=== PATIENT | male | born 1975 | race Caucasian/White ===

== ENCOUNTER 2017-07-12 10:43 | Emergency (ER) | payer OTHER ==
[~2017-07-12] VITALS: Ht 170.2 cm; Wt 81.8 kg
[2017-07-12 10:54] VITALS: RESP 15; TEMP 98.4; Ht 170.2 cm; Wt 81.8 kg
[2017-07-12] MEDS ORDERED: KETOROLAC 15 MG INJ IV STA ×2 (10:56→14:13)
[2017-07-12] MEDS ORDERED: SOD CHLORIDE 0.9% 1,000 ML IV STA (10:56)
[2017-07-12] MEDS ORDERED: ONDANSETRON 4 MG INJ IV STA (10:56)
[2017-07-12 11:23] LABS: BASOPHIL # 0.1 10^3/ul (0.0-0.1); EOSINOPHILS # 0.1 10^3/ul (0.0-0.5); EOSINOPHILS % 2.7 % (0.0-7.0); HEMATOCRIT 43.8 % (42.0-52.0); HEMOGLOBIN 15.3 g/dl (14.0-18.0); LYMPHOCYTES # 2.3 10^3/ul (0.8-2.9); LYMPHOCYTES % 45.3 % (15.0-51.0); MEAN CORPUSCULAR HEMOGLOBIN 29.2 pg (29.0-33.0); MEAN CORPUSCULAR HGB CONC 34.9 g/dl (32.0-37.0); MEAN CORPUSCULAR VOLUME 83.6 fl (82.0-101.0); MEAN PLATELET VOLUME 11.3 fl (7.4-10.4); MONOCYTE # 0.4 10^3/ul (0.3-0.9); MONOCYTES % 8.4 % (0.0-11.0); NEUTROPHIL # 2.2 10^3/ul (1.6-7.5); PLATELET COUNT 215 10^3/UL (140-415); RED BLOOD COUNT 5.24 10^6/ul (4.70-6.10); RED CELL DISTRIBUTION WIDTH 12.2 % (11.5-14.5); WHITE BLOOD COUNT 5.1 10^3/ul (4.8-10.8)
[2017-07-12 11:40] LABS: ALBUMIN 4.2 g/dl (3.3-4.9); ALBUMIN/GLOBULIN RATIO 1.61; BILIRUBIN,INDIRECT 0.4 mg/dl (0-1.1); BILIRUBIN,TOTAL 0.4 mg/dl (0.2-1.3); CALCIUM 9.2 mg/dl (8.4-10.2); CREATININE 1.11 mg/dl (0.61-1.24); POTASSIUM 3.7 mmol/L (3.5-5.1); TOTAL PROTEIN 6.8 g/dl (6.1-8.1)
[2017-07-12 12:13] LABS: ADD UMIC YES; UR ASCORBIC ACID NEGATIVE (NEGATIVE); UR BILIRUBIN (Dip) NEGATIVE (NEGATIVE); UR BLOOD (Dip) 3+ mg/dL (NEGATIVE); UR CLARITY SLIGHTLY CLOUDY (CLEAR); UR COLOR YELLOW (YELLOW); UR GLUCOSE (Dip) NEGATIVE (NEGATIVE); UR KETONES (Dip) NEGATIVE (NEGATIVE); UR LEUKOCYTE ESTERASE (Dip) NEGATIVE Leu/ul (NEGATIVE); UR MUCUS FEW /HPF (NONE SEEN); UR NITRITE (Dip) NEGATIVE (NEGATIVE); UR RBC > 182 /HPF (0-5); UR SPECIFIC GRAVITY (Dip) 1.011 (1.003-1.030); UR TOTAL PROTEIN (Dip) 1+ mg/dl (NEGATIVE); UR UROBILINOGEN (Dip) NEGATIVE (NEGATIVE)
--- NOTE | 2017-07-12 14:02 | RADRPT ---
PROCEDURE: CT Abdomen and Pelvis without contrast. CLINICAL INDICATION: Nephrolithiasis. TECHNIQUE: CT scan of the abdomen and pelvis without contrast was performed on a multidetector CT scanner. The patient was scanned without intravenous contrast. Coronal and sagittal reformatted karla ges were obtained from the axial source images. Images were reviewed on a high-resolution PACS works tation. DICOM images are available. One or more of the following dose reduction techniques were used: -Automated exposure control. -Adjustment of the mA and/or kV according to patient size. -Use of iterative reconstruction technique. The total exam CTDI equals 10.58 mGy and the total exam DLP equals 606.34 mGy-cm. COMPARISON: None. FINDINGS: Please note that the sensitivity for detection of focal lesions or vascular disease is markedly redu ortiz without intravenous contrast. The visualized lung bases are clear. CT abdomen: Liver: Unremarkable. Biliary system: No intra or extrahepatic biliary ductal dilatation. Gallbladder: Unremarkable. Pancreas: Unremarkable. Spleen: Unremarkable. Adrenal glands: Unremarkable. Right kidney: There are a few punctate nonobstructing right renal stones. No obstructing ureteric st one is identified. There is mild prominence of the right renal collecting system. Left kidney: There is a 3 mm obstructing stone in the proximal left ureter with resultant mild proxi mal hydroureter/hydronephrosis. Bowel loops: Unremarkable. There is no bowel obstruction. Appendix normal. Lymph Nodes: There is no mesenteric lymphadenopathy. There is no retroperitoneal lymphadenopathy. CT pelvis: Rectum: Unremarkable. Urinary bladder: Unremarkable. Unenhanced prostate unremarkable. Lymph nodes: There is no iliac lymphadenopathy. There is no inguinal lymphadenopathy. There is a small fat-containing left inguinal hernia. Bone: There are multilevel degenerative changes of the imaged spine. There is an exophytic lucent o sseous lesion noted off the left pubic body measuring approximate 4.2 x 1.9 cm. There is mild atherosclerotic disease. IMPRESSION: 1. 3 mm obstructing stone in the proximal left ureter with resultant mild proximal hydroureter/hydro nephrosis. 2. Few punctate nonobstructing right renal stones. 3. Exophytic lucent osseous lesion off the left pubic body measuring approximate 4.2 x 1.9 cm. Findi ngs may represent a osteochondroma. Recommend further evaluation with contrast enhanced MRI. RPTAT: [facility] Radha Amato, Physician Date Time Electronically viewed and signed by Radha Amato Physician on 07/12/2017 14:02 /
[2017-07-12] MEDS ORDERED: OXYC5CAP17 PO (14:16)
[2017-07-12] MEDS ORDERED: IBUP-1542 PO (14:16)
[2017-07-12] MEDS ORDERED: TAMS-14 PO (14:16)
[2017-07-12] MEDS ORDERED: FENTAnyl 50 MCG/ML VIAL IV ONE (14:30)
[2017-07-12 14:51] VITALS: BP 119/73; PULSE 69
--- NOTE | 2017-07-12 16:02 | ERD ---
ER Documentation Chief Complaint Chief Complaint left flank pain x 1 hour HPI There is a 41-year-old male with no significant past medical history who is presenting with acute onset left-sided flank pain with nausea that started approximately 1 hour prior to arrival. The patient does not have a history of kidney stones. The patient does not endorse any infectious symptoms. The patient denies feeling sick recently. The patient denies fever or chills. The patient has had no headache or vision changes. The patient does not endorse neck or back pain. The patient denies lightheadedness or dizziness. The patient has had no chest pain or shortness of breath or trouble breathing. The patient denies nausea or vomiting. The patient denies abdominal pain or changes to bowel movements or urination. The patient has had no focal deficits. The patient has had no weakness or numbness or tingling to the face or extremities. ROS All systems reviewed and are negative except as per history of present illness. Medications Home Meds Active Scripts Oxycodone Hcl* (IR) (Oxycodone Hcl*) 5 Mg Capsule, 5 MG PO Q4 Y for PAIN, #10 TAB Prov:IGNACIO SOLITARIO MD 07/12/17 Ibuprofen* (Motrin*) 600 Mg Tab, 600 MG PO Q6 for PAIN, #30 TAB Prov:IGNACIO SOLITARIO MD 07/12/17 Tamsulosin Hcl* (Flomax*) 0.4 Mg Cap.er.24h, 0.4 MG PO QPM, #7 CAP Prov:IGNACIO SOLITARIO MD 07/12/17 Allergies Allergies: Coded Allergies: Penicillins (Verified Allergy, Unknown, RASH, 07/12/17) PMhx/Soc Medical and Surgical Hx: pt denies Medical Hx, pt denies Surgical Hx History of Surgery: No Hx Neurological Disorder: No Hx Respiratory Disorders: No Hx Cardiac Disorders: No Hx Psychiatric Problems: No Hx Miscellaneous Medical Probl: No Hx Alcohol Use: Yes (occ) Hx Substance Use: No Hx Tobacco Use: Yes (Vap) Smoking Status: Current every day smoker FmHx Family History: No coronary disease, No diabetes Physical Exam Vitals Vital Signs Date Time Temp Pulse Resp B/P Pulse Ox O2 Delivery O2 Flow Rate FiO2 07/12/17 14:51 69 119/73 100 Room Air 07/12/17 10:54 98.4 87 15 120/87 100 07/12/17 10:54 98.4 87 15 120/87 100 Room Air Physical Exam Const: No apparent distress, well-developed, well-nourished Head: Normocephalic, Atraumatic Eyes: Normal Conjunctiva. Extraocular movements intact. Pupils equal, round and reactive to light ENT: Normal External Ears, Nose and Mouth. Neck: Full range of motion. No meningismus. Resp: Clear to auscultation bilaterally, No wheezes, rales or rhonchi Cardio: Regular rate and rhythm. No murmurs, rubs or gallops Abd: Soft, non tender, non distended. Normal bowel sounds Skin: No petechiae or rashes Back: No midline tenderness. + Left sided CVA tenderness Ext: No cyanosis, or edema Neur: Awake and alert, oriented 4. Cranial nerves intact. No facial droop. Normal strength, sensation and coordination. Psych: Normal Mood and Affect Result Diagram: 07/12/17 1108 07/12/17 1108 Results 24 hrs Laboratory Tests Test 07/12/17 11:08 07/12/17 11:54 White Blood Count 5.110^3/ul Red Blood Count 5.2410^6/ul Hemoglobin 15.3g/dl Hematocrit 43.8% Mean Corpuscular Volume 83.6fl Mean Corpuscular Hemoglobin 29.2pg Mean Corpuscular Hemoglobin Concent 34.9g/dl Red Cell Distribution Width 12.2% Platelet Count 27965^3/UL Mean Platelet Volume 11.3fl Neutrophils % 42.0% Lymphocytes % 45.3% Monocytes % 8.4% Eosinophils % 2.7% Basophils % 1.0% Nucleated Red Blood Cells % 0.0/100WBC Neutrophils # 2.210^3/ul Lymphocytes # 2.310^3/ul Monocytes # 0.410^3/ul Eosinophils # 0.110^3/ul Basophils # 0.110^3/ul Nucleated Red Blood Cells # 0.010^3/ul Sodium Level 143mmol/L Potassium Level 3.7mmol/L Chloride Level 105mmol/L Carbon Dioxide Level 26mmol/L Anion Gap 16 Blood Urea Nitrogen 11mg/dl Creatinine 1.11mg/dl Glucose Level 114mg/dl Calcium Level 9.2mg/dl Total Bilirubin 0.4mg/dl Direct Bilirubin 0.00mg/dl Indirect Bilirubin 0.4mg/dl Aspartate Amino Transf (AST/SGOT) 22IU/L Alanine Aminotransferase (ALT/SGPT) 43IU/L Alkaline Phosphatase 111IU/L Total Protein 6.8g/dl Albumin 4.2g/dl Globulin 2.60g/dl Albumin/Globulin Ratio 1.61 Lipase 91U/L Urine Color YELLOW Urine Clarity SLIGHTLY CLOUDY Urine pH 8.0 Urine Specific [place] 1.011 Urine Ketones NEGATIVEmg/dL Urine Nitrite NEGATIVEmg/dL Urine Bilirubin NEGATIVEmg/dL Urine Urobilinogen NEGATIVEmg/dL Urine Leukocyte Esterase NEGATIVELeu/ul Urine Microscopic RBC > 182/HPF Urine Microscopic WBC 20/HPF Urine Mucus FEW/HPF Urine Hemoglobin 3+mg/dL Urine Glucose NEGATIVEmg/dL Urine Total Protein 1+mg/dl Current Medications Medications (Trade) Dose Ordered Sig/Blake Route PRN Reason Start Time Stop Time Status Last Admin Dose Admin Sodium Chloride (NS) 1,000 ml @ 1,000 mls/hr Q1H STAT IV 07/12/17 10:56 07/12/17 11:55 DC 07/12/17 11:15 Ondansetron HCl (Zofran Inj) 4 mg ONCE STAT IV 07/12/17 10:56 07/12/17 10:57 DC 07/12/17 11:06 Ketorolac Tromethamine (Toradol) 15 mg ONCE STAT IV 07/12/17 10:56 07/12/17 10:57 DC 07/12/17 11:06 Ketorolac Tromethamine (Toradol) 15 mg ONCE STAT IV 07/12/17 14:13 07/12/17 14:14 DC 07/12/17 14:22 Fentanyl (Sublimaze) 50 mcg ONCE ONCE IV 07/12/17 14:30 07/12/17 14:31 DC 07/12/17 14:23 Procedures/MDM MDM The patient's presentation warrants further investigation. An abdominal workup will be performed. I have high suspicion for nephrolithiasis given his overall presentation. The patient presents with abdominal pain. The patient does not have any evidence of peritonitis. The patient does not have any palpable pulsatile mass, and I have low suspicion for AAA. The patient does not have any left lower quadrant tenderness, and I have low suspicion for diverticulosis or diverticulitis. The patient does not have any right lower quadrant tenderness, and I have low suspicion for appendicitis. The patient does not have left upper quadrant tenderness. I have low suspicion for pancreatitis. I have decreased suspicion for nephrolithiasis or renal colic. Does not have right upper quadrant tenderness, and I have low suspicion for gallstones, cholecystitis or biliary colic. The patient does not have clinical symptoms concerning for mesenteric ischemia or ischemic colitis. LABS The patient's blood work was obtained and reviewed. The patient's CBC shows no leukocytosis and no left shift. The patient is afebrile and does not appear systemically ill. I do not suspect a systemic infection. The patient is not anemic today. The patient's platelet count is unremarkable. The patient's CMP shows no signs of metabolic or electrolyte emergencies. The patient has unremarkable renal and hepatic function testing. IMAGING CT Abd/Pelvis 1. 3 mm obstructing stone in the proximal left ureter with resultant mild proximal hydroureter/hydronephrosis. 2. Few punctate nonobstructing right renal stones. 3. Exophytic lucent osseous lesion off the left pubic body measuring approximate 4.2 x 1.9 cm. Findings may represent a osteochondroma. Recommend further evaluation with contrast enhanced MRI. Electronically viewed and signed by Physician Nunu on 07/12/2017 14:02 TREATMENT/DISPOSITION The patient was given IV fluids, Toradol, Zofran and fentanyl. This did significantly improve his symptoms. The patient's CT scan does show nephrolithiasis as expected. The patient's CT findings were discussed. At this time, I feel that the patient stable for discharge. The patient will be sent home with a prescription for oxycodone. The patient was given verbal precautions on how to use this medication. He also be given prescriptions for ibuprofen and Flomax. The patient will need follow-up with his primary care physician in 2-3 days. He also needs follow-up with the urologist. A telephone number was provided to him. The patient will be given strict precautions with which to return to the emergency department. Disclaimer: Inadvertent spelling and grammatical errors are likely due to EHR/ dictation software use and do not reflect on the overall quality of patient care. Note that the electronic time recorded on this note does not necessarily reflect the actual time of the patient encounter. Departure Diagnosis: Primary Impression: Renal colic on left side Additional Impression: Nephrolithiasis Condition: Stable Patient Instructions: Kidney Stone W/ Colic Referrals: JACQUE KERR MD Additional Instructions: Thank you for for coming to [facility] for your care today. Please ask your nurse or provider if you have questions about your care today and do not leave until all your questions have been answered. Please use any medications given as directed and follow-up with your doctor (or the doctor you were referred to) in the next 2-3 days. If you do not have a primary care doctor you may follow up at the [facility] (listed below). You may also use motrin and tylenol as needed for fever and/or pain unless instructed otherwise by your provider or nurse. Indications for more urgent follow-up have been discussed, but you may return to the Emergency Department at ANY time for any worrisome or worsening symptoms. If you have abdominal pain, please know that no test or exam you received is perfect and you should follow up within 8 hours for continued pain. If you had any imaging studies today, such as an X-Ray or CT Scan, these studies will be reviewed later by a radiologist. You will be called if there are important findings that were not identified today, so make sure the contact information you provided at registration is correct. If you received any narcotic pain control medicine today, such as Vicodin, Morphine or Dilaudid, your coordination and judgment may be affected for a number of hours. Please do not drive or operate heavy machinery, and you may want someone to assist you at home. If you were given a prescription for narcotic medication, be aware that it is very addictive- use sparingly and only if necessary. IGNACIO SOLITARIO MD Jul 12, 2017 16:02
[2017-07-13] MEDS ORDERED: HYDR2TAB36 PO (01:34)
== END 2017-07-12 15:05 | disposition home or self-care (01) ==
LOC: E/R 10:43
DX: N20.0 Calculus of kidney (principal); F17.210 Nicotine dependence, cigarettes, uncomplicated
CPT/HCPCS: 36415; 74176; 80053; 81001; 83690; 85025; 87086; 96374; 96375; 96376; 99285; J1885; J2405; J3010; J7030

== ENCOUNTER 2017-07-12 22:39 | Emergency (ER) | payer OTHER ==
[~2017-07-12] VITALS: Ht 177.8 cm; Wt 82.0 kg
[~2017-07-12 22:39] MED LIST: IBUP-1542 PO; OXYC5CAP17 PO; TAMS-14 PO
[2017-07-12 22:43] VITALS: Ht 177.8 cm; Wt 82.0 kg
[2017-07-12] MEDS ORDERED: KETOROLAC 30 MG INJ IV STA (22:51)
[2017-07-12] MEDS ORDERED: ONDANSETRON 4 MG INJ IV STA (22:51)
[2017-07-12] MEDS ORDERED: SOD CHLORIDE 0.9% 1,000 ML IV STA (22:51)
[2017-07-12] MEDS ORDERED: HYDROmorphONE 1 MG/ML SYG IV STA (22:51)
[2017-07-12 23:24] LABS: BASOPHIL # 0.1 10^3/ul (0.0-0.1); BASOPHILS % 0.5 % (0.0-2.0); EOSINOPHILS # 0.2 10^3/ul (0.0-0.5); EOSINOPHILS % 1.4 % (0.0-7.0); HEMATOCRIT 43.4 % (42.0-52.0); HEMOGLOBIN 14.9 g/dl (14.0-18.0); LYMPHOCYTES # 1.5 10^3/ul (0.8-2.9); LYMPHOCYTES % 14.1 % (15.0-51.0); MEAN CORPUSCULAR HEMOGLOBIN 28.8 pg (29.0-33.0); MEAN CORPUSCULAR HGB CONC 34.3 g/dl (32.0-37.0); MEAN CORPUSCULAR VOLUME 83.9 fl (82.0-101.0); MEAN PLATELET VOLUME 11.4 fl (7.4-10.4); MONOCYTE # 0.5 10^3/ul (0.3-0.9); MONOCYTES % 4.7 % (0.0-11.0); NEUTROPHIL # 8.6 10^3/ul (1.6-7.5); NEUTROPHILS % 78.9 % (39.0-77.0); PLATELET COUNT 221 10^3/UL (140-415); RED BLOOD COUNT 5.17 10^6/ul (4.70-6.10); RED CELL DISTRIBUTION WIDTH 12.4 % (11.5-14.5); WHITE BLOOD COUNT 10.9 10^3/ul (4.8-10.8)
[2017-07-12 23:43] LABS: ALBUMIN 4.2 g/dl (3.3-4.9); ALBUMIN/GLOBULIN RATIO 1.55; BILIRUBIN,INDIRECT 0.1 mg/dl (0-1.1); BILIRUBIN,TOTAL 0.1 mg/dl (0.2-1.3); CALCIUM 9.1 mg/dl (8.4-10.2); CREATININE 1.11 mg/dl (0.61-1.24); POTASSIUM 3.9 mmol/L (3.5-5.1); TOTAL PROTEIN 6.9 g/dl (6.1-8.1)
[2017-07-13] MEDS ORDERED: HYDROmorphONE 1 MG/ML SYG IV STA (01:33)
[2017-07-13] MEDS ORDERED: HYDR2TAB36 PO (01:34)
--- NOTE | 2017-07-13 01:37 | ERD ---
ER Documentation Chief Complaint Chief Complaint c/o L sided flank pain. (+) stones. Seen here today for same. HPI 41-year-old male, left-sided flank pain. Patient seen earlier today diagnosed with renal colic. No fevers no chills. Pain is not working. No other current complaints ROS All systems reviewed and are negative except as per history of present illness. Medications Home Meds Active Scripts Hydromorphone Hcl* (Dilaudid*) 2 Mg Tablet, 1 MG PO Q4H Y for PAIN, #14 TAB Prov:OPAL PIERRE 07/13/17 Oxycodone Hcl* (IR) (Oxycodone Hcl*) 5 Mg Capsule, 5 MG PO Q4 Y for PAIN, #10 TAB Prov:IGNACIO SOLITARIO MD 07/12/17 Ibuprofen* (Motrin*) 600 Mg Tab, 600 MG PO Q6 for PAIN, #30 TAB Prov:IGNACIO SOLITARIO MD 07/12/17 Tamsulosin Hcl* (Flomax*) 0.4 Mg Cap.er.24h, 0.4 MG PO QPM, #7 CAP Prov:IGNACIO SOLITARIO MD 07/12/17 Allergies Allergies: Coded Allergies: Penicillins (Verified Allergy, Unknown, RASH, 07/12/17) PMhx/Soc History of Surgery: No Hx Neurological Disorder: No Hx Respiratory Disorders: No Hx Cardiac Disorders: No Hx Psychiatric Problems: No Hx Miscellaneous Medical Probl: Yes (kidney stones) Hx Alcohol Use: No Hx Substance Use: No Hx Tobacco Use: No Smoking Status: Never smoker Physical Exam Vitals Vital Signs Date Time Temp Pulse Resp B/P Pulse Ox O2 Delivery O2 Flow Rate FiO2 07/12/17 22:43 98.2 102 24 129/72 98 Physical Exam Const: [] Head: Atraumatic Eyes: Normal Conjunctiva ENT: Normal External Ears, Nose and Mouth. Neck: Full range of motion..~ No meningismus. Resp: Clear to auscultation bilaterally Cardio: Regular rate and rhythm, no murmurs Abd: Soft, non tender, non distended. Normal bowel sounds Skin: No petechiae or rashes Back: No midline or flank tenderness Ext: No cyanosis, or edema Neur: Awake and alert Psych: Normal Mood and Affect Result Diagram: 07/12/17 2314 07/12/17 2314 Results 24 hrs Laboratory Tests Test 07/12/17 23:14 White Blood Count 10.910^3/ul Red Blood Count 5.1710^6/ul Hemoglobin 14.9g/dl Hematocrit 43.4% Mean Corpuscular Volume 83.9fl Mean Corpuscular Hemoglobin 28.8pg Mean Corpuscular Hemoglobin Concent 34.3g/dl Red Cell Distribution Width 12.4% Platelet Count 60337^3/UL Mean Platelet Volume 11.4fl Neutrophils % 78.9% Lymphocytes % 14.1% Monocytes % 4.7% Eosinophils % 1.4% Basophils % 0.5% Nucleated Red Blood Cells % 0.0/100WBC Neutrophils # 8.610^3/ul Lymphocytes # 1.510^3/ul Monocytes # 0.510^3/ul Eosinophils # 0.210^3/ul Basophils # 0.110^3/ul Nucleated Red Blood Cells # 0.010^3/ul Sodium Level 142mmol/L Potassium Level 3.9mmol/L Chloride Level 105mmol/L Carbon Dioxide Level 24mmol/L Anion Gap 17 Blood Urea Nitrogen 12mg/dl Creatinine 1.11mg/dl Glucose Level 122mg/dl Calcium Level 9.1mg/dl Total Bilirubin 0.1mg/dl Direct Bilirubin 0.00mg/dl Indirect Bilirubin 0.1mg/dl Aspartate Amino Transf (AST/SGOT) 23IU/L Alanine Aminotransferase (ALT/SGPT) 43IU/L Alkaline Phosphatase 104IU/L Total Protein 6.9g/dl Albumin 4.2g/dl Globulin 2.70g/dl Albumin/Globulin Ratio 1.55 Current Medications Medications (Trade) Dose Ordered Sig/Blake Route PRN Reason Start Time Stop Time Status Last Admin Dose Admin Sodium Chloride (NS) 1,000 ml @ 1,000 mls/hr Q1H STAT IV 07/12/17 22:51 07/12/17 23:50 DC 07/12/17 23:28 Hydromorphone HCl (Dilaudid) 1 mg ONCE STAT IV 07/12/17 22:51 07/12/17 22:53 DC 07/12/17 23:28 Ondansetron HCl (Zofran Inj) 4 mg ONCE STAT IV 07/12/17 22:51 07/12/17 22:53 DC 07/12/17 23:28 Ketorolac Tromethamine (Toradol) 30 mg ONCE STAT IV 07/12/17 22:51 07/12/17 22:53 DC 07/12/17 23:28 Hydromorphone HCl (Dilaudid) 1 mg ONCE STAT IV 07/13/17 01:33 07/13/17 01:34 DC Procedures/MDM Medical decision-m[age]-year-old male with renal colic. Pain is now controlled. Patient will be discharged home. Follow-up PCP and urology consult. Departure Diagnosis: Primary Impression: Nephrolithiasis Condition: Stable Patient Instructions: Kidney Stone W/ Colic OPAL PIERRE Jul 13, 2017 01:36
[2017-07-13 02:10] VITALS: BP 111/69; PULSE 71; RESP 18
== END 2017-07-13 02:12 | disposition home or self-care (01) ==
LOC: E/R 22:39
DX: N20.0 Calculus of kidney (principal)
CPT/HCPCS: 36415; 80053; 85025; 96374; 96375; 96376; 99284; J1170; J1885; J2405; J7030

== ENCOUNTER 2017-08-12 23:00 | Emergency (ER) | END 2017-08-13 03:20 | disposition home or self-care (01) ==